=== PATIENT | male | born 1990 | race Caucasian/White ===

== ENCOUNTER 2024-06-04 08:20 | Emergency (ER) | payer MEDICAID ==
[~2024-06-04] VITALS: Ht 175.3 cm; Wt 134.0 kg
[2024-06-04] MEDS ORDERED: LEVOTHYROXIN125 MCG PO (08:28)
[2024-06-04 08:33] VITALS: BP 136/95
[2024-06-04] MEDS ORDERED: SODIUM CHLORIDE 0.9% 1,000 ML IV ONE (08:40)
[2024-06-04] MEDS ORDERED: ONDANSETRON HCl 4 MG/2 ML SDV IV ONE (08:40)
[2024-06-04] MEDS ORDERED: KETOROLAC TROMETHAMINE 30 MG/ML SDV IV ONE (08:40)
[2024-06-04] MEDS ORDERED: NAPROXEN500 MG PO (08:55)
[2024-06-04] MEDS ORDERED: JARDIANCE25 MG PO (08:55)
[2024-06-04] MEDS ORDERED: ALLOPURINOL200 MG PO (08:56)
[2024-06-04] MEDS ORDERED: ATORVASTATIN CA40 MG PO (08:56)
[2024-06-04] MEDS ORDERED: METFORMIN500 M2 PO (08:56)
[2024-06-04] MEDS ORDERED: LEVOTHYROXIN137 MCG PO (08:57)
[2024-06-04 09:03] LABS: URINE BILIRUBIN - DIPSTICK Negative (NEGATIVE); URINE BLOOD DIPSTICK Negative (NEGATIVE); URINE GLUCOSE - DIPSTICK >=1000 mg/dL (NEGATIVE); URINE KETONE Trace mg/dL (NEGATIVE); URINE LEUK ESTERASE Negative (NEGATIVE); URINE NITRITE - DIPSTICK Negative (Negative); URINE PH 5.5 (4.5-8.0); URINE PROTEIN - DIPSTICK Negative (NEG-TRACE)
[2024-06-04 09:04] LABS: URINE COLOR Yellow
[2024-06-04 09:18] LABS: BASO% 0.4 % (0-3); EOS% 2.3 % (0-8); HEMATOCRIT 51.4 % (39.0-50.0); IMMATURE GRANULOCYTES 0.6 % (0.0-5.0); LYMPH% 23.6 % (15-41); MEAN CELL VOLUME 96.4 fL CALC (80.0-100.0); MEAN CORPUSCULAR HGB 31.9 pG CALC (26.0-32.0); MEAN CORPUSCULAR HGB CONC 33.1 g/dL CAL (32.0-36.0); MONO% 8.9 % (2-13); NEUT# 4.39 thou/uL (1.82-7.42); NEUT% 64.2 % (42-76); RED BLOOD COUNT 5.33 mill/uL (4.70-6.10); RED CELL DISTRI WIDTH 12.8 % (11.5-15.5)
[2024-06-04 09:24] LABS: ALBUMIN 4.7 g/dL (3.2-5.0); BILIRUBIN, TOTAL 1.4 mg/dL (0.2-1.3); POTASSIUM 4.3 mmol/l (3.5-5.1); TOTAL PROTEIN 7.7 g/dL (6.3-8.2)
[2024-06-04 09:39] VITALS: BP 119/74
[2024-06-04] MEDS ORDERED: ZOFRAN4 MG/TAB PO (09:39)
[2024-06-04 09:45] VITALS: BP 114/76
[2024-06-04 10:16] VITALS: BP 119/71
[2024-06-04 10:31] VITALS: BP 112/72
[2024-06-04 10:53] VITALS: BP 112/72
== END 2024-06-04 10:30 | disposition home or self-care (01) ==
LOC: ED 08:20
PROVIDERS: Family Medicine
DX: E86.0 Dehydration (principal); E11.9 Type 2 diabetes mellitus without complications; E03.9 Hypothyroidism, unspecified; E66.01 Morbid (severe) obesity due to excess calories; Z79.84 Long term (current) use of oral hypoglycemic drugs; Z20.822 Contact with and (suspected) exposure to COVID-19

== ENCOUNTER 2024-12-13 13:32 | Emergency (ER) | payer OTHER ==
[2024-12-13] VITALS (8 sets, daily range): BP systolic 115–135; BP diastolic 83–90
[~2024-12-13] VITALS: Ht 175.3 cm; Wt 136.0 kg
[~2024-12-13 13:32] MED LIST: ALLOPURINOL200 MG PO; ATORVASTATIN CA40 MG PO; JARDIANCE25 MG PO; LEVOTHYROXIN125 MCG PO; LEVOTHYROXIN137 MCG PO; METFORMIN500 M2 PO; NAPROXEN500 MG PO; ZOFRAN4 MG/TAB PO
[2024-12-13] MEDS ORDERED: METHOCARBAMOL500 MG PO (16:17)
== END 2024-12-13 16:43 | disposition home or self-care (01) ==
LOC: ED 13:32
DX: R20.0 Anesthesia of skin (principal); E11.9 Type 2 diabetes mellitus without complications; S16.1XXA Strain of muscle, fascia and tendon at neck level, initial encounter; X58.XXXA Exposure to other specified factors, initial encounter; Z79.84 Long term (current) use of oral hypoglycemic drugs